=== PATIENT | male | born 1965 | race Hispanic/Latino ===

== ENCOUNTER 2019-06-02 07:09 | Day surgery (SDC) | payer OTHER ==
[2019-05-30 11:25] LABS: BASOPHILS % (AUTO) 0.9 % (0.0-5.0); EOSINOPHILS % (AUTO) 1.8 % (0.0-8.0); HEMATOCRIT 48.1 % (42-54); LYMPHOCYTES % (AUTO) 28.4 % (21.0-51.0); MEAN CORPUSCULAR HEMOGLOBIN 32.3 pg (27.0-33.0); MEAN CORPUSCULAR HGB CONC 34.5 g/dL (32.0-36.0); MEAN CORPUSCULAR VOLUME 93.6 fL (79-99); NEUTROPHILS % (AUTO) 60.9 % (40.0-77.0); PLATELET COUNT (AUTO) 206 K/uL (130-400); RED BLOOD CELL COUNT(AUTO) 5.14 MIL/uL (4.50-6.20); RED CELL DISTRIBUTION WIDTH 13.1 % (11.0-15.5); WHITE BLOOD COUNT (AUTO) 8.1 K/uL (4.8-10.8)
[2019-05-30 11:41] VITALS: BP 133/70
[2019-06-02] VITALS (19 sets, daily range): BP systolic 107–136; BP diastolic 53–80
[~2019-06-02] VITALS: Ht 174 cm; Wt 97.8 kg
[2019-06-02] MEDS: CEFAZOLIN SODIUM 1 GM VIAL IVP SCH ×2 (06:00→08:30)
[~2019-06-02 07:09] MED LIST: AMLO5TAB9 PO; LISI1TAB27 PO
[2019-06-02] MEDS ORDERED: LACTATED RINGERS 1000ML 1,000 ML IV ONE (07:40)
[2019-06-02] MEDS ORDERED: NEOSTIGMINE 5MG/5ML SYR IV ONE (07:54)
[2019-06-02] MEDS ORDERED: LIDOCAINE PF 2% 5ML ABBOJECT ONE (07:54)
[2019-06-02] MEDS ORDERED: GLYCOPYRROLATE 1 MG/5 ML SYRINGE ONE (07:54)
[2019-06-02] MEDS ORDERED: MIDAZOLAM HCL 1 MG/ML 2ML VIAL ONE (07:54)
[2019-06-02] MEDS ORDERED: FENTANYL CITRATE PF 50 MCG/1 ML 2ML VIAL ONE ×2 (07:55→08:55)
[2019-06-02] MEDS ORDERED: PROPOFOL 10 MG/ML 20ML VIAL IV ONE ×2 (07:55→08:34)
[2019-06-02] MEDS ORDERED: ROCURONIUM 10MG/1ML SYR 10 MG/ML ML ONE ×2 (07:55→08:53)
[2019-06-02] MEDS ORDERED: PHENYLEPHRINE HCL 10 MG/ML 1ML VIAL IV ONE (09:17)
[2019-06-02] MEDS ORDERED: KETOROLAC TROMETHAMINE 30MG/ML ONE (09:19)
[2019-06-02] MEDS ORDERED: NAPR-1192 PO (09:27)
[2019-06-02] MEDS ORDERED: TYL3 PO (09:27)
[2019-06-02] MEDS ORDERED: CEPH500B PO (09:27)
[2019-06-02] MEDS ORDERED: MEPERIDINE-PF 25 MG/ML SYG ONE ×2 (09:39→09:49)
--- NOTE | 2019-06-02 10:40 | NUR ---
post op received pt from [facility], s/p right knee arthroscopy. dressing to site dry and intact, neurovascular checks wnl. pt awake and alert . vs stable. pt denied any pain or discomforts. plan of care discuss with patient and spouse.
--- NOTE | 2019-06-02 11:15 | NUR ---
dc dc instructions and rx x 3 given to patients spouse, instructed to f/u with dr. bucio, and on new med regimen . instructed on dr. bucio specific dc orders to follow. Crutches given to patient and instructed on use. Dr Adele Bucio spoke to patient/spouse about surgery outcomes. Both patient /spouse verbalized understanding.
--- NOTE | 2019-06-02 11:20 | NUR ---
dc pt dc home via [place],no distress noted. denies any pain or discomforts. accompanied by spouse
== END 2019-06-02 11:20 | disposition home or self-care (01) ==
LOC: DAH 07:09
PROVIDERS: ATTEND Orthopaedic Surgery
DX: S83.281A Other tear of lateral meniscus, current injury, right knee, initial encounter (principal); S83.241A Other tear of medial meniscus, current injury, right knee, initial encounter; X58.XXXA Exposure to other specified factors, initial encounter; Y93.89 Activity, other specified; Y92.89 Other specified places as the place of occurrence of the external cause; Y99.8 Other external cause status; Z79.899 Other long term (current) drug therapy; I10 Essential (primary) hypertension; E78.5 Hyperlipidemia, unspecified; K21.9 Gastro-esophageal reflux disease without esophagitis; Z90.49 Acquired absence of other specified parts of digestive tract; Z87.891 Personal history of nicotine dependence; Z88.8 Allergy status to other drugs, medicaments and biological substances; Z88.3 Allergy status to other anti-infective agents; Z79.2 Long term (current) use of antibiotics; Z72.89 Other problems related to lifestyle; Z82.49 Family history of ischemic heart disease and other diseases of the circulatory system; Z83.3 Family history of diabetes mellitus
CPT/HCPCS: 29880; 36415; 80048; 85025; A4215; A4221; A4222; A4223; A4606; A4649 ×2; A4930; A5120; A6223; J0690; J1885; J2001; J2175 ×2; J2250; J2370; J2704 ×2; J2710; J3010 ×2; J3490; J7120